=== PATIENT | female | born 1965 | race Two or more races ===

== ENCOUNTER 2025-01-10 10:43 | Day surgery (SDC) | payer BC, SELFPAY ==
[2025-01-08 16:57] VITALS: BMI 36.4
[2025-01-10 11:59] VITALS: BP 150/81; PULSE 90; RESP 18; TEMP 36.4; O2SAT 97
[2025-01-10] MEDS: LACTATED RINGERS 1000ML 1,000 ML 25 ML IV (12:09)
--- NOTE | 2025-01-10 12:14 | EXP.HP ---
History of Present Illness *Admission Date: 01/10/25 *Reason for visit:: Dyspepsia, bloating, heartburn, reflux and globus sensation *History of present illness: Mrs. Reese is a 59-year-old female who is here for diagnostic upper endoscopy secondary to functional dyspepsia, heartburn, reflux and globus sensation. The examination is deemed medically necessary for diagnostic upper endoscopy. The patient has been seen, interviewed and examined prior to the procedure by both myself and the anesthesia provider. [facility] Disclaimer: The information contained in this section may have been updated after the patient was seen, as this information can be updated by other users. Medical History Encounter for colonoscopy following colon polyp removal Internal hemorrhoids Hyperlipidemia IBS (irritable bowel syndrome) GERD with esophagitis Colon polyps Colon cancer Back pain Surgical History History of hysterectomy History of cholecystectomy History of lung surgery History of right hemicolectomy laparoscopic and robotic Family History Sister Colon cancer Social History (Updated 01/10/25 @ 12:08 by Marisa Sin RN) Smoking Status: Never smoker alcohol intake: never substance use type: denies use current occupational status: employed Travel in the last 8 weeks?: None caffeine: Yes Have you lived/traveled outside [place] in past 30 days?: No Contact w/someone who lives/traveled outside [place] past 30 days?: No Exposure to someone with infectious disease in past 14 days?: No Do you have a fever (greater than 100.4 F or 38 C)?: No Have you tested positive for COVID-19?: No Exposed to someone with COVID-19 in past 14 days?: No Do you have a sore throat?: No Do you have a cough?: No Do you have any weakness?: No Are you experiencing any nausea/vomitting?: No Do you have any diarrhea?: No Are you experiencing any unusual bleeding?: No Do you have any muscle aches/pain?: No Do you have any abdominal pain?: No Are you experiencing loss of taste or smell?: No Review of Systems Review of Systems Review of systems (narrative): Negative *Cardiovascular Comments: Negative *Gastrointestinal Comments: Negative *Genitourinary Comments: Negative *Musculoskeletal Comments: Negative *Neurologic Comments: Negative Meds Home Medications and Allergies Home Medications ?Medication ?Instructions ?Recorded ?Confirmed ?Type Bifidobacterium infantis 4 mg 4 mg PO DAILY 10/31/24 01/10/25 History capsule (Align (B.infantis)) albuterol sulfate 90 mcg/actuation 90 mcg inhalation DAILY 10/31/24 01/10/25 History aerosol inhaler ascorbic acid (vitamin C) 1,000 mg 1 g PO DAILY 10/31/24 01/10/25 History capsule buspirone 10 mg tablet 10 mg PO DAILY 10/31/24 01/10/25 History cholecalciferol (vitamin D3) 125 125 mcg PO DAILY 10/31/24 01/10/25 History mcg (5,000 unit) tablet cyclobenzaprine 10 mg tablet 10 mg PO DAILY 10/31/24 01/10/25 History desloratadine 5 mg tablet 5 mg PO DAILY 10/31/24 01/10/25 History epinephrine 0.3 mg/0.3 mL 0.3 ml SQ DAILY 10/31/24 01/10/25 History injection, auto-injector esomeprazole magnesium 40 mg 40 mg PO DAILY 10/31/24 01/10/25 History capsule,delayed release (Nexium) ezetimibe 10 mg tablet 10 mg PO DAILY 10/31/24 01/10/25 History famotidine 40 mg tablet 40 mg PO DAILY 10/31/24 01/10/25 History zvlepz-sxbwegph-jtbknja 1 cap PO DAILY 10/31/24 01/10/25 History 36,000-114,000-180,000 unit capsule,delay rel (Creon) omega-3 acid ethyl esters 1 gram 1 g PO DAILY 10/31/24 01/10/25 History capsule prucalopride 2 mg tablet 2 mg PO DAILY 10/31/24 01/10/25 History (Motegrity) vitamin E mixed 200 unit tablet 400 unit PO DAILY 10/31/24 01/10/25 History New Prescriptions to Start Prescriptions: Allergies Allergy/AdvReac Type Severity Reaction Status Date / Time clindamycin Allergy Verified 10/31/24 09:02 erythromycin base Allergy Verified 10/31/24 09:02 generic meds Allergy Uncoded 10/31/24 09:02 Exam Data for Last 24 hours Vital signs and Labs for Last 24 Hours: Temp Pulse Resp BP Pulse Ox O2 Del Method 97.6 F 90 18 150/81 H 97 Room Air 01/10/25 11:59 01/10/25 11:59 01/10/25 11:59 01/10/25 11:59 01/10/25 11:59 01/10/25 11:59 I & O for Last 24 hours: Intake & Output 01/07/25 01/08/25 01/09/25 01/10/25 23:59 23:59 23:59 23:59 Weight 219 lb *Routine HEENT Exam Head: Present normocephalic Eye: Present EOMI and PERRL ENT: Present mucous membranes moist *Routine Neck Exam Neck: Present supple *Routine Respiratory Exam Respiratory: Present CTA bilaterally *Routine Cardiovascular Exam Cardiovascular: Present RRR *Routine Abdominal Exam Abdominal: Present soft and normoactive bowel sounds; Absent tenderness *Routine Rectal Exam Rectal:: deferred *Routine Genitalia Exam Genitalia:: deferred *Routine Extremities Exam Extremities: Absent cyanosis, clubbing or edema *Routine Skin Exam Skin: Present warm; Absent rash *Routine Neurological Exam Neurological: Present alert and oriented X3 Assessment and Plan *Assessment and plan (1) Globus sensation: Status: Acute Category: Medical Code(s): R09.A2 - Foreign body sensation, throat (2) Heartburn: Status: Acute Category: Medical Code(s): R12 - Heartburn (3) Acid reflux: Status: Acute Category: Medical Code(s): K21.9 - Gastro-esophageal reflux disease without esophagitis (4) Bloating: Status: Acute Category: Medical Code(s): R14.0 - Abdominal distension (gaseous) (5) Functional dyspepsia: Status: Acute Category: Medical Code(s): K30 - Functional dyspepsia Plan A/P: 1. Functional dyspepsia with heartburn, reflux, bloating and globus sensation is the preprocedural diagnosis. The patient will be anesthetized/sedated using MAC sedation. The patient has been seen and examined. Cardiac and lung assessment prior to the examination is stable. Proceed with planned diagnostic upper endoscopy.
--- NOTE | 2025-01-10 12:16 | P.PNANES_ITS ---
[facility] Disclaimer: The information contained in this section may have been updated after the patient was seen, as this information can be updated by other users. Medical History Encounter for colonoscopy following colon polyp removal Internal hemorrhoids Hyperlipidemia IBS (irritable bowel syndrome) GERD with esophagitis Colon polyps Colon cancer Back pain Surgical History History of hysterectomy History of cholecystectomy History of lung surgery History of right hemicolectomy laparoscopic and robotic Family History Sister Colon cancer Social History (Updated 01/10/25 @ 12:08 by Marisa Sin RN) Smoking Status: Never smoker alcohol intake: never substance use type: denies use current occupational status: employed Travel in the last 8 weeks?: None caffeine: Yes Have you lived/traveled outside [place] in past 30 days?: No Contact w/someone who lives/traveled outside [place] past 30 days?: No Exposure to someone with infectious disease in past 14 days?: No Do you have a fever (greater than 100.4 F or 38 C)?: No Have you tested positive for COVID-19?: No Exposed to someone with COVID-19 in past 14 days?: No Do you have a sore throat?: No Do you have a cough?: No Do you have any weakness?: No Are you experiencing any nausea/vomitting?: No Do you have any diarrhea?: No Are you experiencing any unusual bleeding?: No Do you have any muscle aches/pain?: No Do you have any abdominal pain?: No Are you experiencing loss of taste or smell?: No [facility] Anesthesia Checklist Patient Identification Patient Identification: Arm Band Structural Data Admitted From: Home Planned Operative Procedure/s: EGD Consent for Planned Operative Procedure(s) Verified: Yes Verified Documents: Surgical Consent and History and Physical NPO Status Verified Time NPO: 00:00 Additional verifications Anesthesia Reactions: No Airway Assessment Mallampati Score:: Class II C-Spine Mobility Assessed: Yes TMJ Mobility Assessed: Yes Dentition: Good Dentition Neurological Assessment Level of Consciousness: Awake, Alert and Appropriate Anesthesia Plan Anesthesia Risk discussed: Yes Anesthesia Plan: Verified ASA Class: II Anesthesia Type: MAC
--- NOTE | 2025-01-10 12:29 | HMH.PROCNOTE ---
[facility] Procedure Note Date: 01/10/25 Time: 12:37 Procedure Note:: Upper Endoscopy Procedure Report: Esophagogastroduodenoscopy with cold biopsies and TTS balloon dilation Endoscopost: Kermit Solano II, MD Referring Physician: None Date of Procedure: January 10, 2025 Equipment: Olympus GIF 190 standard upper endoscope Sedation: MAC sedation Indications: Mrs. Reese is a 59-year-old female with functional dyspepsia. The patient does have heartburn, reflux and bloating. The patient does report some dysphagia and globus sensation. She did have an upper endoscopy with me in May 2019 and had bile reflux with reactive gastropathy and cricopharyngeal spasm. I did dilate her esophagus. The patient does take Nexium. She is also on Creon and buspirone. 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 She has had right hemicolectomy. Her last colonoscopy in October 2021 showed normal anastomosis and a single polyp (tubular adenoma) which was removed. Procedure: Prior to the procedure, a history and physical exam was performed, and patient's medications and allergies were reviewed. The risks, benefits and alternatives of the sedation and procedure were discussed with the patient. All questions were answered and informed consent was obtained. The patient was brought to the procedure room. Patient identification and proposed procedure were verified by the physician and the nurse. The patient was placed in a left lateral decubitus position and the scope was passed under direct vision. Throughout the procedure, the patient's blood pressure, pulse, and oxygen saturations were monitored continuously. The upper GI endoscopy was accomplished without difficulty. The patient tolerated the procedure well. Findings: The scope was passed directly into the upper esophagus and advanced to the fourth portion of duodenum and proximal jejunum. A cold biopsy was taken from the proximal jejunum for disaccharidase assay. The proximal jejunum, post bulbar duodenum, ampulla and duodenal bulb were normal with normal mucosa and conniventes. The scope was withdrawn through a normal duodenal bulb and pylorus into the stomach. There was bile reflux with mild linear reactive gastropathy of the antrum. The body and fundus of the stomach were normal. Upon retroflexion there was no hiatal hernia. Cold biopsies were taken from the antrum. The scope was then withdrawn into the esophagus. There was no evidence of reflux esophagitis or Walter's. There was no rings, strictures, webs, corrugation or furrowing. There was no proximal esophageal inlet patch. There were strong tertiary contractions and evidence of moderate esophageal dysmotility. The entire esophagus was dilated to 60 [place]/20 mm with a TTS hydrostatic balloon. There was some resistance at the cricopharyngeus/cricopharyngeal spasm. The remainder of the esophageal mucosa was normal. Impression: 1. Cricopharyngeal spasm status post dilation to 20 mm 2. Nonerosive GERD with moderate esophageal dysmotility 3. Bile reflux with mild linear antral reactive gastropathy Plan: I will follow-up the biopsies and disaccharidase assay. I would recommend that she begin [id number] herbal Iberogast twice daily. We will discuss additional treatment options.
[2025-01-10 12:41] VITALS: BP 132/73; PULSE 99; RESP 17; TEMP 36.3; O2SAT 97
[2025-01-10 12:51] VITALS: BP 125/79; PULSE 91; RESP 18; O2SAT 98
[2025-01-10 13:01] VITALS: BP 150/78; PULSE 87; RESP 18; O2SAT 97
[2025-01-10 13:21] VITALS: BP 146/73; PULSE 86; RESP 18; O2SAT 98
[2025-01-15 14:26] LABS: Disclaimer Notes (.); Interpretation Notes (.); Lactase 55.56 (>/= 14.0); Maltase 308.2 (>/= 110.0); Palatinase 34.22 (>/= 8.5); Reference Notes (.); Sucrase 167.89 (>/= 25.0)
== END 2025-01-10 13:27 | disposition home or self-care (01) ==
PROVIDERS: Visit Provider Internal Medicine Gastroenterology
PROC: 0DJ08ZZ Inspection of Upper Intestinal Tract, Via Natural or Artificial Opening Endoscopic (ICD-10-PCS; CPT 43239; principal; 2025-01-10 13:00)
DX: K30 Functional dyspepsia (principal); K29.00 Acute gastritis without bleeding; J39.2 Other diseases of pharynx; K29.50 Unspecified chronic gastritis without bleeding; K21.9 Gastro-esophageal reflux disease without esophagitis; R09.A2 Foreign body sensation, throat; R14.0 Abdominal distension (gaseous); K22.4 Dyskinesia of esophagus; K31.89 Other diseases of stomach and duodenum; Z86.0101 Personal history of adenomatous and serrated colon polyps; Z90.49 Acquired absence of other specified parts of digestive tract; Z79.899 Other long term (current) drug therapy; Z88.1 Allergy status to other antibiotic agents; Z85.038 Personal history of other malignant neoplasm of large intestine; Z80.0 Family history of malignant neoplasm of digestive organs
CPT/HCPCS: 43239; 43249; 82657; C1726; J7120